=== PATIENT | male | born 1940 | race Hispanic/Latino ===

== ENCOUNTER 2018-02-20 07:28 | Day surgery (SDC) | payer MEDICARE, BC ==
[2014-12-01 13:06] VITALS: BMI 26.9
[2018-02-20] MEDS ORDERED: Naloxone 0.4 mg/ml Inj (Adult) ONE (09:30)
[2018-02-20] MEDS ORDERED: Midazolam 2 MG/2 ML VIAL ONE (09:30)
[2018-02-20] MEDS ORDERED: Flumazenil 0.1 mg/ml Inj (5ml) IVP ONE (09:30)
[2018-02-20] MEDS ORDERED: Midazolam 2 MG/2 ML VIAL IV ONE (09:33)
--- NOTE | 2018-02-20 10:23 | CARD ---
APPROVED REPORT EXAM: Transesophageal echocardiogram with color flow Doppler and Synchronized Cardioversion. INDICATION Atrial Fibrillation Reason For Test : Rule out Intracardiac Thrombus. PROCEDURE After obtaining informed consent, patient underwent transesophageal echo in the Echo Lab. Type of Sedation : Conscious Sedation Sedation was achieved with Versed, Fentanyl intravenously. Transesophageal probe was inserted and advanced into esophagus without difficulty. Echo enhancement agent administered: Agitated Saline The RANDA was performed without complications. Synchronized Cardioversion acheived with 200 Joules after 1 attempt(s). Rhythm following Synchronized Cardioversion: Normal Sinus Rhythm Throughout the procedure, the blood pressure, pulse oximetry, cardiac rhythm, and rate were monitored. The patient tolerated the procedure without adverse effects. Recovery from conscious sedation was uneventful and vital signs were stable. LEFT VENTRICLE The left ventricle is normal size. There is normal left ventricular wall thickness. The left ventricular function is normal. The left ventricular ejection fraction is within the normal range. There is normal LV segmental wall motion. RIGHT VENTRICLE The right ventricle is normal size. The right ventricular systolic function is normal. ATRIA The left atrium is mildly dilated. There is no thrombus seen in the left atrium or left atrial appendage. The right atrium size is normal. The interatrial septum is intact with no evidence for an atrial septal defect. AORTIC VALVE The aortic valve is normal in structure. No aortic regurgitation is present. There is no aortic valvular stenosis. MITRAL VALVE The mitral valve leaflets are thickened. Mitral regurgitation is moderate. TRICUSPID VALVE The tricuspid valve is normal in structure. There is mild tricuspid regurgitation. PULMONIC VALVE The pulmonary valve is normal in structure. GREAT VESSELS The aortic root is normal in size. There ismild atherosclerotic plaque in the descending aorta. The IVC is normal in size and collapses >50% with inspiration. <Conclusion> Dilated LA. Normal LV size and systolic function. Moderate MR. Mild TR. No thrombus seen in LA or COSTA. Successful cardioversion to NSR.
[2018-02-20 10:54] VITALS: TEMP 97.3; O2SAT 96
[2018-02-20 11:15] VITALS: BP 124/61; PULSE 62; RESP 18
--- NOTE | 2018-02-20 16:47 | CARD ---
APPROVED REPORT EKG Measurement Heart [id number] <Conclusion> Sinus rhythm with premature atrial complexes Otherwise normal ECG
== END 2018-02-20 12:00 | disposition home or self-care (01) ==
LOC: TEE 07:28 → EDSTATUS 09:00 → TEE 12:00
PROVIDERS: ATTEND Internal Medicine Cardiovascular Disease
DX: I48.91 Unspecified atrial fibrillation (principal); I49.1 Atrial premature depolarization; I10 Essential (primary) hypertension
CPT/HCPCS: 92960; 93005; 93312; J2250; J3010

== ENCOUNTER 2018-07-02 19:33 | Emergency (ER) | payer MEDICARE, BC ==
[2018-07-02 19:34] VITALS: BMI 26.9
[2018-07-02 19:59] VITALS: RESP 18; TEMP 98.2
--- NOTE | 2018-07-02 20:43 | PCM.PROC ---
Laceration - Laceration Repair No standard instances Wound Length (In cm): 1.18 in Description Of Wound: Stellate Wound Cleansed With: Sterile Saline Wound Examination: Irrigated With Saline Wound Closure: Suture (2 absorbable and 5 non-absorbable) Suture Technique And Material Used: Interrupted Wound Complexity: Simple Wound Complexity: Simple
--- NOTE | 2018-07-02 20:48 | ED PDOC ---
Arrival/HPI <Miky Lake - Last Filed: 07/03/18 05:42> - General Historian: Patient - History of Present Illness Narrative History of Present Illness (Text): 07/02/18 20:44 Pt is a 78 yo M with pmhx of afib, and HTN who presents for a mechanical fall. He states that he was walking in the house when he was making the transition to go down one step into the kitchen. He got caught on a wire and tripped down the step and fell face first onto the hardwood pa below. Pt states that he heard a cracking noise and as he arose from the fall, he noticed blood on his face and on the floor. He denies any LOC, lightheadedness or dizziness before the fall and remembers everything after. He denies having any headache, focal weakness, numbness, tingling, SOB, chest pain, abd pain, n/v, any pain in the shoulders, down the back, on the elbows, hips, knees or ankles. He admits to his tetanus shot being up to date, and well within the last 10 years. He admits to taking ASA 81mg and clopidogrel. Time/Duration: 1 hour Symptom Onset: Sudden Context: Walking <AngelitoDoll - Last Filed: 07/03/18 20:28> <Esther Shay - Last Filed: 07/04/18 13:33> - General Chief Complaint: Trauma Time Seen by Provider: 07/02/18 19:46 Past Medical History - Provider Review Nursing Documentation Reviewed: Yes - Infectious Disease Hx of Infectious Diseases: None - Cardiac Hx Pacemaker: No - Pulmonary Hx Respiratory Disorders: No - Neurological Hx Paralysis: No - HEENT Hx HEENT Disorder: Yes (SINUS SX) - Renal Hx Renal Disorder: No - Endocrine/Metabolic Hx Endocrine Disorders: No - Hematological/Oncological Hx Blood Transfusions: No - Integumentary Hx Dermatological Disorder: Yes (SPIDER VEINS TO BILATERAL LE,SKIN CA TO RIGHT NECK REMOVED) - Musculoskeletal/Rheumatological Hx Musculoskeletal Disorders: No - Gastrointestinal Hx Gastrointestinal Disorders: Yes (HERNIORHAPPHY) Hx Gastroesophageal Reflux: Yes - Genitourinary/Gynecological Hx Genitourinary Disorders: Yes Hx Prostate Problems: Yes - Psychiatric Hx Emotional Abuse: No Hx Physical Abuse: No Hx Substance Use: No - Anesthesia Hx Anesthesia Reactions: No Hx Malignant Hyperthermia: No - Suicidal Assessment Feels Threatened In Home Enviroment: No <Lavon Eaton - Last Filed: 07/03/18 20:28> Family/Social History - Physician Review Nursing Documentation Reviewed: Yes Family/Social History: Unknown Family HX Smoking Status: Never Smoked Hx Alcohol Use: Yes (OCCASIONAL BEER) Hx Substance Use: No <Lavon Eaton - Last Filed: 07/03/18 20:28> Allergies/Home Meds <Miky Lake - Last Filed: 07/03/18 05:42> <Lavon Eaton - Last Filed: 07/03/18 20:28> <Esther Shay - Last Filed: 07/04/18 13:33> Allergies/Adverse Reactions: Allergies bacitracin Allergy (Intermediate, Verified 02/15/18 10:29) RASH Home Medications: Home Meds Medication Instructions Recorded Confirmed Allopurinol 300 mg PO DAILY 12/01/14 07/02/18 Cholecalciferol (Vitamin D3) 5,000 iu PO DAILY 12/01/14 07/02/18 [Vitamin D] Simvastatin 40 mg PO DAILY 12/01/14 07/02/18 Lansoprazole 30 mg PO DAILY 10/24/16 07/02/18 Metoprolol Succinate XL [Toprol XL] 50 mg PO DAILY 10/24/16 07/02/18 Apixaban [Eliquis] 5 mg PO BID 02/15/18 07/02/18 Review of Systems - Review of Systems Eyes: Normal. absent: Vision Changes, Photophobia, Eye Pain Respiratory: absent: SOB, Cough, Wheezing Cardiovascular: absent: Chest Pain, Palpitations, Syncope Gastrointestinal: absent: Abdominal Pain, Nausea, Vomiting Genitourinary Male: absent: Dysuria, Hematuria Musculoskeletal: absent: Back Pain, Neck Pain Neurological: absent: Headache, Dizziness, Focal Weakness, Facial Droop <Lavon Eaton - Last Filed: 07/03/18 20:28> Physical Exam Vital Signs Temp Pulse Resp BP Pulse Ox 07/02/18 19:58 98.2 F 81 18 157/75 H 98 <Miky Lake - Last Filed: 07/03/18 05:42> Vital Signs Reviewed: Yes Vital Signs Temp Pulse Resp BP Pulse Ox 07/02/18 19:58 98.2 F 81 18 157/75 H 98 Temperature: Afebrile Blood Pressure: Hypertensive Pulse: Regular Respiratory Rate: Normal Appearance: Positive for: Well-Appearing, Non-Toxic, Other (bleeding from lac in forehead and nose.) Mental Status: Positive for: Alert and Oriented X 3 - Systems Exam Head: Present: Normocephalic, Laceration (Noted in skin section below, there is no step-offs or loose bone fragments felt on exam, there is no depressions or other areas of trauma.) Pupils: Present: PERRL Extroacular Muscles: Present: EOMI Conjunctiva: Present: Normal Nose (External): Present: Laceration (1/2cm on the lateral aspect of the R side of the nose.) Neck: Present: Normal Range of Motion. No: MIDLINE TENDERNESS, Paraspinal Tenderness Respiratory/Chest: Present: Clear to Auscultation, Good Air Exchange. No: Respiratory Distress, Accessory Muscle Use, Wheezes, Rales, Rhonchi Cardiovascular: Present: Regular Rate and Rhythm, Normal S1, S2. No: Murmurs, Rub, Gallop Abdomen: Present: Normal Bowel Sounds. No: Tenderness, Distention, Peritoneal Signs, Rebound, Guarding Neurological: Present: GCS=15, Speech Normal, Motor Func Grossly Intact, Normal Sensory Function Skin: Present: Warm, Dry, Normal Color, Laceration (3cm stellate laceration that is actively bleeding, sutured with 2-0 absorable and 5-0 non-absorable sutures to ensure hemostasis. ). No: Rashes Psychiatric: Present: Alert, Oriented x 3, Normal Insight, Normal Concentration, Anxious <Lavon Eaton - Last Filed: 07/03/18 20:28> Vital Signs Temp Pulse Resp BP Pulse Ox 07/02/18 23:25 82 18 132/70 99 07/02/18 21:34 78 18 137/74 99 07/02/18 19:58 98.2 F 81 18 157/75 H 98 <Esther Shay - Last Filed: 07/04/18 13:33> Medical Decision Making - RAD Interpretation Radiology Orders: 07/02/18 19:53 HEAD W/O CONTRAST [CT] Stat <Miky Lake - Last Filed: 07/03/18 05:42> ED Course and Treatment: 07/02/18 20:56 Pt is a 78 yo M with pmhx detailed above s/p mechanical fall. Pt on clopdiogrel and baby ASA, no focal neurologic weakness, numbness, tingling or headache - CT head - RAD Interpretation Radiology Orders: 07/02/18 19:53 HEAD W/O CONTRAST [CT] Stat <Lavon Eaton - Last Filed: 07/03/18 20:28> ED Course and Treatment: 07/04/18 13:33 Patient seen by the resident and then evaluated by me. 78 y/o M s/p mechanical fall on aspirin and plavix. Laceration repaired and tetanus updated. Signed out to Dr. Lake pending ct and reevaluation - RAD Interpretation Radiology Orders: 07/02/18 19:53 HEAD W/O CONTRAST [CT] Stat 07/02/18 21:39 ELBOW LEFT 3 VIEWS ROUTINE [RAD] Stat KNEE LEFT 2 VIEWS (AP & LAT) [RAD] Stat <Esther Shay - Last Filed: 07/04/18 13:33> - Scribe Statement The provider has reviewed the documentation as recorded by the Scribe 78 year old male presents with a head laceration. In agreement with resident note, which includes further HPI details. Patient was seen and evaluated with resident, came up with plan and treatment together. <Miky Lake - Last Filed: 07/03/18 05:42> Disposition/Present on Arrival - Present on Arrival Any Indicators Present on Arrival: No - Disposition Have Diagnosis and Disposition been Completed?: Yes Disposition Time: 22:30 <Miky Lake - Last Filed: 07/03/18 05:42> - Present on Arrival Any Indicators Present on Arrival: No History of DVT/PE: No History of Uncontrolled Diabetes: No Urinary Catheter: No History of Decub. Ulcer: No History Surgical Site Infection Following: None <Lavon Eaton - Last Filed: 07/03/18 20:28> <Esther Shay - Last Filed: 07/04/18 13:33> - Disposition Diagnosis: Laceration of forehead, Head injury, Elbow fracture, left Disposition: HOME/ ROUTINE Condition: GOOD Discharge Instructions (ExitCare): Laceration Repair, Closed Head Injury, Laceration Repair With Stitches (DC), Upper Arm Fracture Additional Instructions: suture removal in 7 days use sling follow up with orthopedics Referrals: Lopez Hill MD [Staff Provider] - Follow up with primary Huey Burgos MD [Primary Care Provider] - Follow up with primary Forms: [employer] ([employer])
--- NOTE | 2018-07-02 21:05 | ED PDOC ---
Physical Exam Vital Signs Reviewed: Yes Vital Signs Temp Pulse Resp BP Pulse Ox 07/02/18 19:58 98.2 F 81 18 157/75 H 98 Temperature: Afebrile Blood Pressure: Normal Pulse: Regular Respiratory Rate: Normal Appearance: Positive for: Well-Appearing, Non-Toxic, Comfortable Pain Distress: None Mental Status: Positive for: Alert and Oriented X 3 Medical Decision Making ED Course and Treatment: 07/02/18 21:03 Patient endorsed to me by Dr. Shay pending CT Head results. 07/02/18 21:36 CT Head reviewed by radiologist, shows: No acute intracranial abnormality. 07/02/18 21:49 Upon reevaluation, patient shows bruising on left knee and left elbow. Will get x-ray to rule out injury. - RAD Interpretation Radiology Orders: 07/02/18 19:53 HEAD W/O CONTRAST [CT] Stat - Scribe Statement The provider has reviewed the documentation as recorded by the Scribe Damon Toledo Provider Scribe Attestation: All medical record entries made by the Scribe were at my direction and personally dictated by me. I have reviewed the chart and agree that the record accurately reflects my personal performance of the history, physical exam, medical decision making, and the department course for this patient. I have also personally directed, reviewed, and agree with the discharge instructions and disposition. Disposition/Present on Arrival - Present on Arrival Any Indicators Present on Arrival: No History of DVT/PE: No History of Uncontrolled Diabetes: No Urinary Catheter: No History of Decub. Ulcer: No History Surgical Site Infection Following: None - Disposition Have Diagnosis and Disposition been Completed?: Yes Diagnosis: Laceration of forehead, Head injury, Elbow fracture, left Disposition: HOME/ ROUTINE Disposition Time: 22:35 Condition: GOOD Discharge Instructions (ExitCare): Laceration Repair, Closed Head Injury, Laceration Repair With Stitches (DC), Upper Arm Fracture Additional Instructions: suture removal in 7 days use sling follow up with orthopedics Referrals: Lopez Hill MD [Staff Provider] - Follow up with primary Huey Burgos MD [Primary Care Provider] - Follow up with primary Forms: [employer] ([place])
[2018-07-02 23:31] VITALS: BP 132/70; PULSE 82; O2SAT 99
--- NOTE | 2018-07-03 08:22 | CT ---
Date of service: 07/02/2018 PROCEDURE: CT HEAD WITHOUT CONTRAST. HISTORY: mechanical fall, head trauma COMPARISON: 10/24/2016 TECHNIQUE: Axial computed tomography images were obtained through the head/brain without intravenous contrast. Supplemental Coronal and Sagittal projections created and reviewed. Radiation dose: Total exam DLP = 1093.35 mGy-cm. This CT exam was performed using one or more of the following dose reduction techniques: Automated exposure control, adjustment of the mA and/or kV according to patient size, and/or use of iterative reconstruction technique. FINDINGS: HEMORRHAGE: No intracranial hemorrhage. BRAIN: No mass effect or edema. Cortical and cerebellar atrophy, periventricular small vessel disease. VENTRICLES: Unremarkable. No hydrocephalus. CALVARIUM: Unremarkable. PARANASAL SINUSES: Unremarkable as visualized. No significant inflammatory changes. MASTOID AIR CELLS: Unremarkable as visualized. No inflammatory changes. OTHER FINDINGS: Left frontal scalp contusion. No underlying calvarial or intracranial abnormalities detected. IMPRESSION: No acute intracranial abnormalities. No significant findings to account for the clinical presentation. No significant interval change compared to the prior examination(s). Concordant results (preliminary interpretation) provided by [facility]. Procedure Completed: 20:44 Preliminary Report: Dictated and Authenticated: 21:05. Final Interpretation: 08:18. July 03, 2018
--- NOTE | 2018-07-03 08:46 | RAD ---
Date of service: 07/02/2018 PROCEDURE: Left Knee Radiographs. HISTORY: Posttraumatic pain. COMPARISON: None. FINDINGS: BONES: No acute fracture. JOINTS: Degenerative changes primarily affecting medial compartment and to lesser extent patellofemoral joint. JOINT EFFUSION: None. OTHER FINDINGS: Soft tissue swelling at the level of the patella and patellar tendon. IMPRESSION: Soft tissue swelling without acute articular or osseous abnormality.
--- NOTE | 2018-07-03 08:47 | RAD ---
Date of service: 07/02/2018 PROCEDURE: Radiographs of the left elbow. HISTORY: Trauma/fall. COMPARISON: No prior. FINDINGS: BONES: No acute fracture. JOINTS: Normal. No osteoarthritis. SOFT TISSUES: Soft tissue swelling primarily about the olecranon. No underlying/adjacent fracture. JOINT EFFUSION: None. OTHER FINDINGS: None IMPRESSION: Soft tissue swelling without acute articular or osseous abnormality.
== END 2018-07-02 23:25 | disposition home or self-care (01) ==
LOC: ED 19:33
DX: S01.81XA Laceration without foreign body of other part of head, initial encounter (principal); S42.402A Unspecified fracture of lower end of left humerus, initial encounter for closed fracture; W01.0XXA Fall on same level from slipping, tripping and stumbling without subsequent striking against object, initial encounter; Y93.01 Activity, walking, marching and hiking; I10 Essential (primary) hypertension; I48.91 Unspecified atrial fibrillation; Z79.01 Long term (current) use of anticoagulants